=== PATIENT | male | born 1950 | race Hispanic/Latino ===

== ENCOUNTER → 2017-09-29 | Outpatient (CLI) | payer MEDICARE ==
[~2017-09-29] MED LIST: BEE POLLEN580 MG PO; CURAMED PO; OMEGA 3 PO; PROBIOTIC & AC1 EACH PO; VITAMIN C PO; [UNRECOGNIZED DRUG - OTHER] PO; [UNRECOGNIZED DRUG - OTHER] PO; [UNRECOGNIZED DRUG - OTHER] PO; [UNRECOGNIZED DRUG - OTHER] PO; [UNRECOGNIZED DRUG - OTHER] PO
--- NOTE | 2017-09-29 12:31 | Diagnostic Imaging Report ---
PROCEDURE:X-RAY ABDOMEN - KUB COMPARISON:None. INDICATIONS:CALCULI OF KIDNEY FINDINGS: There is a non-obstructed bowel-gas pattern. No signs of pneumoperitoneum. No calcification overlying the renal shadows. Left nephroureteral stent in place. 7 mm calcification adjacent to the distal left nephroureteral stent. Multiple pelvic phleboliths. No acute osseous abnormality. CONCLUSION: No evidence of nephrolithiasis. 7 mm calcification adjacent to the distal left nephroureteral stent may represent a left ureteral calculus versus left sacral sclerotic focus. Nonobstructive bowel gas pattern. Dictated by: Puma Garcia M.D. on 09/29/2017 at 12:31 Electronically approved by: Puma Garcia M.D. on 09/29/2017 at 12:31
== END ==
LOC: RAD 11:23
PROVIDERS: ATTEND Urology
DX: N20.0 Calculus of kidney (principal)
CPT/HCPCS: 74018

== ENCOUNTER → 2017-10-11 | Day surgery (SDC) | payer MEDICARE ==
[~2017-10-11] MED LIST changes: +CEFAZOLIN SOD 2 GM/D5W 50ML 50 ML IV ONE; +DESFLURANE 240 ML BTL INH ONE; +DEXAMETHASONE SOD PHOS INJ 4 MG/ML VIAL ONE; +FENTANYL CITRATE/PF 100MCG/2 ML INJ ONE; +IOPAMIDOL 200 MG/ML 20 ML VIAL IT ONE; +LIDOCAINE HCL 2% LOCAL INJ 5 ML SDV VIAL INJ ONE; +MIDAZOLAM HCL 2 MG/2 ML VIAL ONE; +ONDANSETRON HCL INJ 2 MG/ML VIAL ONE; +PROPOFOL IV EMULSION 10 MG/ML 20 ML VIAL ONE
--- OUTSIDE RECORDS SUMMARY | 2017-10-11 06:36 | XMS REPORT ---
[facility] Address Unknown Phone Unavailable Care Team Providers Care Chalk Cutter Name Role Phone DON MENDIETA Unavailable Unavailable Problems This patient has no known problems. Allergies, Adverse Reactions, Alerts This patient has no known allergies or adverse reactions. Medications This patient has no known medications. Results Test Description Test Time Test Comments Text Results Atomic Results Result Comments ABDOMEN-1VIEW (KUB) [place] [address] Patient Name: DELIA COPELAND MR #: [id number] : 1950 Age/Sex: 66/M Req #: [id number] [facility] Physician: Ordered by: DON MENDIETA MD Report #: [id number] Location: [facility] Room/Bed: Procedure: [id number] DX/ABDOMEN-1VIEW (KUB) Exam Date: 09/29/17 Exam Time: 1127 REPORT STATUS: Signed PROCEDURE: X-RAY ABDOMEN - KUB COMPARISON: None. INDICATIONS: CALCULI OF KIDNEY FINDINGS: There is a non-obstructed bowel-gas pattern. No signs of pneumoperitoneum. No calcification overlying the renal shadows. Left nephroureteral stent in place. 7 mm calcification adjacent to the distal left nephroureteral stent. Multiple pelvic phleboliths. No acute osseous abnormality. CONCLUSION: No evidence of nephrolithiasis. 7 mm calcification adjacent to the distal left nephroureteral stent may represent a left ureteral calculus versus left sacral sclerotic focus. Nonobstructive bowel gas pattern. Dictated by: Puma Thao M.D. on 09/29/2017 at 12:31 Electronically approved by: Puma Thao M.D. on 09/29/2017 at 12 :31 Dictated By: PUMA THAO MD 1231 Transcribed By: ROMARIO on 09/29/17 1231 COPY TO: DON MENDIETA MD
[2017-10-11 07:54] LABS: BASOPHILS # (AUTO) 0.1 (0.0-0.1); BASOPHILS % 1.1 % (0.0-1.0); EOSINOPHILS # (AUTO) 0.4 (0.0-0.4); EOSINOPHILS % 8.1 % (0.0-6.0); HEMATOCRIT 42.3 % (38.2-49.6); HEMOGLOBIN 14.7 g/dL (14.0-18.0); LYMPHOCYTES # (AUTO) 1.7 (1.0-3.2); LYMPHOCYTES % 37.7 % (18.0-39.1); MEAN CORPUSCULAR HEMOGLOBIN 29.9 pg (28-32); MEAN CORPUSCULAR HGB CONC 34.8 g/dL (31-35); MEAN CORPUSCULAR VOLUME 86.2 fL (81-99); MONOCYTES # (AUTO) 0.4 (0.2-0.8); NEUTROPHILS % 43.9 % (38.7-80.0); PLATELET COUNT 158 x10e3/uL (140-360); RED BLOOD COUNT 4.91 x10e6/uL (4.3-5.7); RED CELL DISTRIBUTION WIDTH 12.2 % (11.7-14.4)
--- NOTE | 2017-10-11 07:56 | Diagnostic Imaging Report ---
PROCEDURE: Frontal and lateral views of the chest. COMPARISON: None. INDICATIONS: PRE OPERATIVE CHEST X-RAY FOR CYSTOSCOPY AND RETORGRADE PYELOGRAMS FINDINGS: Lines/tubes: None. Lungs: The lungs are well inflated and clear. There is no evidence of pneumonia or pulmonary edema. Pleura: There is no pleural effusion or pneumothorax. Heart and mediastinum: The heart and the mediastinum are normal. Bones: No acute bony abnormality. IMPRESSION: No acute radiographic abnormality. Dictated by: Davian Roberson M.D. on 10/11/2017 at 7:57 Electronically approved by: Davian Roberson M.D. on 10/11/2017 at 7:57
[2017-10-11 08:02] LABS: BLOOD UREA NITROGEN 13 mg/dL (7-26); BUN/CREATININE RATIO 16 (6-25); CALCIUM 9.5 mg/dL (8.4-10.2); CARBON DIOXIDE 24 mmol/L (22-29); CHLORIDE 106 mmol/L (98-107); CREATININE, SERUM 0.81 mg/dL (0.72-1.25); EST GLOMERULAR FILTRATION RATE > 60 ML/MIN (60-); GLUCOSE 105 mg/dL (74-118); SODIUM 139 mmol/L (136-145)
--- NOTE | 2017-10-12 00:29 | Operative Report ---
DATE OF PROCEDURE: October 11, 2017 SERVICE: Urology. PREOPERATIVE DIAGNOSES: 1. Left ureterolithiasis. 2. Left hydronephrosis. 3. J stent on the left side. 4. Microhematuria. POSTOPERATIVE DIAGNOSES: 1. Left ureterolithiasis. 2. Left hydronephrosis. 3. J stent on the left side. 4. Microhematuria. OPERATIONS PERFORMED: 1. Cystoscopy and removal of double J stent from the left side. 2. Left retrograde pyelograms under fluoroscopic control. 3. Left ureteroscopy with laser fragmentation of stone. 4. Removal of stone fragment with basket. 5. Placement of double J stent, 7-Fijian 24 cm long to the left side. 6. Interpretation of x-ray, radiologist not present. 7. Supervision of fluoroscopy, radiologist not present. SOIL FERTILITY EXTENSION SPECIALIST: None. ANESTHESIA: General. CLINICAL NOTE: This is a 66-year-old patient that had high level obstruction by a stone in the junction between the lower third and upper two-third ureters with hydronephrosis. Has a double J stent in place. The patient was brought for fragmentation of the stone and possible change of stent. Procedure was discussed with him. He is aware that he may require additional stents. DESCRIPTION OF PROCEDURE AND FINDINGS: After proper level of anesthesia was achieved, the patient was placed in lithotomy position, prepped and draped in sterile fashion. The urethra inspected is unremarkable. Bladder outlet is somewhat obstructed by large prostate. Bladder is trabeculated. Double J stent is protruding from the left ureteral orifice. It was pulled out to the urethral meatus, and an open-end catheter was inserted after insertion of the wire. Retrograde pyelograms demonstrated hydronephrosis and suggested stone in the junction between the lower third and the upper two-third of the ureter. Guidewire was kept in place and a flexible ureteroscopy was initially done. This was changed to a semi-rigid one. The stone was identified, it appeared to be quite impacted. A 300 laser fiber was used and the stone was fragmented quite well. A basket was then passed several times and several fragments were retrieved and sent to the lab. It is elected to put in another double J stent in place and a 7-Fijian 24 cm long double J stent was properly positioned on the left side. This was verified by x-ray and endoscopy. Patient tolerated the procedure well, was transferred in satisfactory condition to the recovery room. He will require additional procedures most probably another ureteroscopy. Job#: [id number]
== END | disposition home or self-care (01) ==
LOC: OR 06:33
PROVIDERS: ATTEND Urology
DX: N13.2 Hydronephrosis with renal and ureteral calculous obstruction (principal); Z46.6 Encounter for fitting and adjustment of urinary device; N32.89 Other specified disorders of bladder; E11.9 Type 2 diabetes mellitus without complications; G47.33 Obstructive sleep apnea (adult) (pediatric)
CPT/HCPCS: 36415; 52356; 71046; 74420; 80048; 82948; 85025; 88300; 93005; C2617; J1100; J2001; J2250; J2405; Q9966

== ENCOUNTER → 2017-11-15 | Day surgery (SDC) | payer MEDICARE ==
[2017-11-13 14:35] LABS: BASOPHILS # (AUTO) 0.1 (0.0-0.1); BASOPHILS % 1.5 % (0.0-1.0); EOSINOPHILS # (AUTO) 0.2 (0.0-0.4); EOSINOPHILS % 4.9 % (0.0-6.0); HEMATOCRIT 43.8 % (38.2-49.6); HEMOGLOBIN 15.1 g/dL (14.0-18.0); LYMPHOCYTES # (AUTO) 1.6 (1.0-3.2); LYMPHOCYTES % 35.3 % (18.0-39.1); MEAN CORPUSCULAR HGB CONC 34.5 g/dL (31-35); MEAN CORPUSCULAR VOLUME 86.9 fL (81-99); MONOCYTES # (AUTO) 0.4 (0.2-0.8); MONOCYTES % 9.1 % (4.4-11.3); NEUTROPHILS # (AUTO) 2.2 (2.1-6.9); NEUTROPHILS % 49.2 % (38.7-80.0); PLATELET COUNT 171 x10e3/uL (140-360); RED BLOOD COUNT 5.04 x10e6/uL (4.3-5.7); RED CELL DISTRIBUTION WIDTH 12.4 % (11.7-14.4)
[~2017-11-15] MED LIST changes: +BELLADONNA/OPIUM 60 MG SUPP PR ONE; +CEFAZOLIN SOD 1 GM VIAL ONE; -CEFAZOLIN SOD 2 GM/D5W 50ML 50 ML IV ONE; -DESFLURANE 240 ML BTL INH ONE; +ENZYMATIC DIGE1 EACH PO; +HYALURONIC ACI1 EACH PO; -IOPAMIDOL 200 MG/ML 20 ML VIAL IT ONE; +IOPAMIDOL 610MG/1ML 300 MG/ML VIAL IV ONE; +LABETALOL HCL 5 MG/ML 20ML VIAL ONE; +SEVOFLURANE INHAL SOLN 250 ML PEN BTL ONE
--- NOTE | 2017-11-15 12:20 | Operative Report ---
DATE OF PROCEDURE: November 15, 2017 SERVICE: Urology. PREOPERATIVE DIAGNOSES 1. History of left ureterolithiasis. 2. Left double-J stent. 3. Microhematuria. 4. Urethral stricture. POSTOPERATIVE DIAGNOSES 1. History of left ureterolithiasis. 2. Left double-J stent. 3. Microhematuria. 4. Urethral stricture. OPERATION PERFORMED 1. Cystoscopy and urethral dilation. 2. Removal of stent from the left side. 3. Left retrograde pyelogram under fluoroscopic control. 4. Left ureteroscopy. 5. X-ray interpretation, no radiologist. 6. Supervision of fluoroscopy, no radiologist. BIOPROCESSING MANUFACTURING TECHNICIAN: None. CLINICAL INDICATION NOTE: This 67-year-old patient was brought for further treatment of nephrolithiasis. She does have a double-J stent on the left side. Procedure was explained to the patient and accepted. DESCRIPTION OF PROCEDURE AND FINDINGS: After proper level of anesthesia, the patient was placed in lithotomy position, prepped and draped in usual sterile fashion. Urethra was inspected. Narrow area in the bulbus urethra was noticed, dilated to 28-Luxembourgish. The bladder itself was somewhat trabeculated. No tumor was seen. Double J was protruding from the left ureteral orifice. It was pulled out to the urethral meatus. A guidewire was passed up into the kidney. An open-ended catheter was then inserted, and retrograde pyelogram demonstrated minimal dilation of the upper collecting system. No stone could be clearly identified. Therefore, a wire was kept in place, and ureteroscopy was done up to the kidney. No stones were identified. There was some erythematous area near the meatus, probably from the double-J stent. The bladder was then irrigated. The scope was removed. Patient was transferred in satisfactory condition to the recovery room. Followup given. Job#: [id number]
== END | disposition home or self-care (01) ==
LOC: OR 08:46
PROVIDERS: ATTEND Urology
DX: N35.9 Urethral stricture, unspecified (principal); R31.29 Other microscopic hematuria; N20.0 Calculus of kidney
CPT/HCPCS: 36415; 52281; 52310; 74420; 85025; J0690; J1100; J2001; J2250; J2405; J3490; Q9967

== ENCOUNTER 2018-10-10 14:27 | Emergency (ER) | payer MEDICARE ==
[~2018-10-10] VITALS: Ht 170.2 cm; Wt 79.4 kg
[~2018-10-10 14:27] MED LIST changes: -BELLADONNA/OPIUM 60 MG SUPP PR ONE; -CEFAZOLIN SOD 1 GM VIAL ONE; -DEXAMETHASONE SOD PHOS INJ 4 MG/ML VIAL ONE; -FENTANYL CITRATE/PF 100MCG/2 ML INJ ONE; -IOPAMIDOL 610MG/1ML 300 MG/ML VIAL IV ONE; -LABETALOL HCL 5 MG/ML 20ML VIAL ONE; -LIDOCAINE HCL 2% LOCAL INJ 5 ML SDV VIAL INJ ONE; -MIDAZOLAM HCL 2 MG/2 ML VIAL ONE; -ONDANSETRON HCL INJ 2 MG/ML VIAL ONE; -PROPOFOL IV EMULSION 10 MG/ML 20 ML VIAL ONE; -SEVOFLURANE INHAL SOLN 250 ML PEN BTL ONE
[2018-10-10] MEDS ORDERED: KETOROLAC TROMETHAMINE 30 MG/ML VIAL IV STA (14:47)
[2018-10-10] MEDS ORDERED: HYOSCYAMINE SULFATE 0.5 MG/ML INJ IV ONE (15:00)
[2018-10-10 15:12] LABS: BASOPHILS # (AUTO) 0.1 (0.0-0.1); BASOPHILS % 0.4 % (0.0-1.0); EOSINOPHILS # (AUTO) 0.1 (0.0-0.4); EOSINOPHILS % 0.7 % (0.0-6.0); HEMATOCRIT 43.3 % (38.2-49.6); HEMOGLOBIN 14.4 g/dL (14.0-18.0); LYMPHOCYTES # (AUTO) 1.6 (1.0-3.2); LYMPHOCYTES % 13.9 % (18.0-39.1); MEAN CORPUSCULAR HEMOGLOBIN 29.8 pg (28-32); MEAN CORPUSCULAR HGB CONC 33.3 g/dL (31-35); MEAN CORPUSCULAR VOLUME 89.6 fL (81-99); MONOCYTES # (AUTO) 0.8 (0.2-0.8); MONOCYTES % 6.6 % (4.4-11.3); NEUTROPHILS # (AUTO) 9.2 (2.1-6.9); NEUTROPHILS % 78.1 % (38.7-80.0); PLATELET COUNT 284 x10e3/uL (140-360); RED BLOOD COUNT 4.83 x10e6/uL (4.3-5.7); RED CELL DISTRIBUTION WIDTH 12.7 % (11.7-14.4)
[2018-10-10 15:20] LABS: BILIRUBIN,URINE NEGATIVE (NEGATIVE); CLARITY,URINE CLEAR (CLEAR); COLOR,URINE ORANGE (YELLOW); KETONES,URINE NEGATIVE (NEGATIVE); LEUKOCYTE ESTERASE ,URINE TRACE (NEGATIVE); NITRITE,URINE POSITIVE (NEGATIVE); PROTEIN,URINE DIPSTICK TRACE (NEGATIVE); URINE UROBILINOGEN 1 mg/dL (0.2 - 1)
[2018-10-10 15:26] LABS: BACTERIA,URINE FEW /HPF
[2018-10-10 15:31] LABS: ANION GAP 12.6 mmol/L (8-16); BLOOD UREA NITROGEN 13 mg/dL (7-26); BUN/CREATININE RATIO 13 (6-25); CALCIUM 9.6 mg/dL (8.4-10.2); CARBON DIOXIDE 27 mmol/L (22-29); CHLORIDE 99 mmol/L (98-107); CREATININE, SERUM 0.97 mg/dL (0.72-1.25); EST GLOMERULAR FILTRATION RATE > 60 ML/MIN (60-); GLUCOSE 211 mg/dL (74-118); POTASSIUM 3.6 mmol/L (3.5-5.1); SODIUM 135 mmol/L (136-145)
[2018-10-10] MEDS ORDERED: NITROFURANTOIN MACROCRYSTALS 100 MG CAP PO NR (16:30)
[2018-10-10] MEDS ORDERED: KETOROLAC TROMETHAMINE 10 MG TAB PO ONE (16:45)
[2018-10-10] MEDS ORDERED: HYOSCYAMINE 0.125 MG TAB PO ONE (16:45)
[2018-10-10] MEDS ORDERED: TRAMADOL HCL 50 MG TAB PO ONE (16:45)
[2018-10-10 17:28] VITALS: BP 133/94
[2018-10-15] MEDS ORDERED: LEVSIN0.125 MG PO (10:56)
[2018-10-15] MEDS ORDERED: TYLENOL WITH C1 EACH PO (10:56)
[2018-10-15] MEDS ORDERED: NITROFURANTOIN100 MG PO (10:56)
== END 2018-10-10 17:33 | disposition home or self-care (01) ==
LOC: ER 14:27
DX: N39.0 Urinary tract infection, site not specified (principal); I10 Essential (primary) hypertension
CPT/HCPCS: 36415; 80048; 81001; 85025; 87086; 99284

== ENCOUNTER → 2018-10-16 | Day surgery (SDC) | payer MEDICARE ==
[2018-10-15 11:32] LABS: BASOPHILS # (AUTO) 0.1 (0.0-0.1); BASOPHILS % 1.2 % (0.0-1.0); EOSINOPHILS # (AUTO) 0.2 (0.0-0.4); EOSINOPHILS % 2.2 % (0.0-6.0); HEMATOCRIT 41.5 % (38.2-49.6); HEMOGLOBIN 13.9 g/dL (14.0-18.0); LYMPHOCYTES # (AUTO) 1.2 (1.0-3.2); MEAN CORPUSCULAR HEMOGLOBIN 29.6 pg (28-32); MEAN CORPUSCULAR HGB CONC 33.5 g/dL (31-35); MEAN CORPUSCULAR VOLUME 88.5 fL (81-99); MONOCYTES # (AUTO) 0.7 (0.2-0.8); MONOCYTES % 9.9 % (4.4-11.3); NEUTROPHILS # (AUTO) 4.7 (2.1-6.9); NEUTROPHILS % 68.6 % (38.7-80.0); PLATELET COUNT 261 x10e3/uL (140-360); RED BLOOD COUNT 4.69 x10e6/uL (4.3-5.7); RED CELL DISTRIBUTION WIDTH 12.5 % (11.7-14.4)
--- NOTE | 2018-10-15 12:20 | Diagnostic Imaging Report ---
EXAMINATION: CHEST 2 VIEWS INDICATION: Pre-admit. COMPARISON: Chest radiograph 10/11/17. FINDINGS: TUBES and LINES: None. LUNGS: Lungs are well inflated. Lungs are clear. There is no evidence of pneumonia or pulmonary edema. PLEURA: No pleural effusion or pneumothorax. HEART AND MEDIASTINUM: The cardiomediastinal silhouette is unremarkable. BONES AND SOFT TISSUES: No acute osseous lesion. Soft tissues are unremarkable. UPPER ABDOMEN: No free air under the diaphragm. IMPRESSION: No acute radiographic abnormality. Signed by: Dr. Jesús Smith MD on 10/15/2018 12:17 PM
[~2018-10-16] MED LIST changes: +ATROPINE SULFATE 1 MG/ML VIAL ONE; +BELLADONNA/OPIUM 60 MG SUPP PR ONE; +CEFAZOLIN SOD 1 GM/NS 50ML 50 ML IV ONE; +DEXAMETHASONE SOD PHOS INJ 4 MG/ML VIAL ONE; +FENTANYL CITRATE/PF 100MCG/2 ML INJ ONE; +GENTAMICIN 120MG/NS 100ML 100 ML ONE; +IOPAMIDOL 610MG/1ML 300 MG/ML VIAL IV ONE; +KETOROLAC TROMETHAMINE 30 MG/ML VIAL ONE; +LEVSIN0.125 MG PO; +LIDOCAINE HCL 2% LOCAL INJ 5 ML SDV VIAL INJ ONE; +MIDAZOLAM HCL 2 MG/2 ML VIAL ONE; +NEOSTIGMINE 5 MG/5ML SYR ONE; +NITROFURANTOIN100 MG PO; +ONDANSETRON HCL INJ 2MG/ML 2ML 2 MG/ML VIAL ONE; +PROPOFOL IV EMULSION 10 MG/ML 20 ML VIAL ONE; +ROCURONIUM BROMIDE 10 MG/ML 5ML VIAL ONE; +SEVOFLURANE INHAL SOLN 250 ML PEN BTL ONE; +TYLENOL WITH C1 EACH PO
[2018-10-16 12:50] VITALS: BP 5/7
--- NOTE | 2018-10-16 23:24 | Operative Report ---
DATE OF PROCEDURE: 10/16/2018 SURGEON: Aleksandar Hatch MD SERVICE: Urology. PREOPERATIVE DIAGNOSES: 1. BPH. 2. Urinary retention. 3. Dysuria. 4. Hematuria. POSTOPERATIVE DIAGNOSES: 1. BPH. 2. Urinary retention. 3. Dysuria. 4. Hematuria. OPERATIONS PERFORMED: 1. Cystoscopy and bilateral retrograde pyelograms under fluoroscopic control. This was done as a part of assessment of hematuria, not related to the prostate problem. 2. Interpretation of x-ray with radiologist not present. 3. Supervision of fluoroscopy, radiologist not present. 4. Removal of the prostatic tissue using a plasma button type. COLOR WORKER: None. ANESTHESIA: General. CLINICAL INDICATION: This is a 67-year-old patient, who went into acute urinary retention and has Avery catheter in place and dysuria as well as hematuria. He was brought for treatment of prostate and assessment of . The procedure was discussed with the patient. Potential benefits, complications, and plan of treatment was discussed and accepted. This was discussed with the patient, his , and his daughter. DESCRIPTION OF PROCEDURE AND FINDINGS: After appropriate level of anesthesia was achieved, the patient was placed in lithotomy position, prepped and draped in the usual sterile fashion. The urethra was inspected and is unremarkable. The bladder is significantly obstructed. The prostatic urethra is quiet irritated, some blood is present in the bladder. Bladder is also somewhat irritated. were identified. A Cone Tip was used, bilateral retrograde pyelogram were done, appeared to be unremarkable. Following this, a instrument was inserted. The plasma instrument was used and all the blocking tissue was removed. A median lobe was treated first and lateral lobes were treated after that. Care was taken not to go distal to the verumontanum. Of note, then upon unroofing prostatic tissue, significant prostatic secretions were coming from all areas of the prostate. After completing the removal of the tissue, any visible bleeding point was carefully coagulated demonstrated good flow. B and O suppository were then inserted. The patient was transferred in satisfactory condition to recovery room. He will be followed and instruction given. MD JUAN Stahl/GIRMA /[id number]
== END | disposition home or self-care (01) ==
LOC: OR 07:21
PROVIDERS: ATTEND Urology
DX: N40.0 Benign prostatic hyperplasia without lower urinary tract symptoms (principal); N32.0 Bladder-neck obstruction; G47.33 Obstructive sleep apnea (adult) (pediatric); Z01.810 Encounter for preprocedural cardiovascular examination; Z01.812 Encounter for preprocedural laboratory examination; Z01.818 Encounter for other preprocedural examination
CPT/HCPCS: 36415; 52005; 52601; 71046; 74420; 85025; 93005; C1758; J0461; J0690; J1100; J1580; J1885; J2001; J2250; J2405; J2704; Q9967